=== PATIENT | female | born 1960 | race Caucasian/White ===

== ENCOUNTER 2023-01-05 04:19 | Emergency (ER) | payer BC ==
[~2023-01-05] VITALS: Ht 167.6 cm; Wt 80.7 kg
[2023-01-05] MEDS ORDERED: COZAAR25 MG PO (04:32)
[2023-01-05] MEDS ORDERED: CARAFATE1 GM PO (06:23)
[2023-01-05] MEDS ORDERED: LEVSIN/SL0.125 MG SL (06:23)
[2023-01-05] MEDS ORDERED: PEPCID AC20 MG PO (06:23)
== END 2023-01-05 06:34 | disposition home or self-care (01) ==
LOC: ER 04:19
DX: K29.70 Gastritis, unspecified, without bleeding (principal)